=== PATIENT | female | born 1990 | race Caucasian/White ===

== ENCOUNTER → 2018-02-04 | Day surgery (SDC) | payer OTHER ==
[~2018-02-04] VITALS: Ht 157.5 cm; Wt 51.8 kg
[~2018-02-04] MED LIST: BIOT10TA PO; CHLORHEXIDINE GLUCONATE 2 % 1 PACK (2 CLOTHS) TOPICAL PRN; DEXAMETHASONE SOD PHOS 4 MG/ML VIAL IV ONE; ESMOLOL HCL 100 MG/10 ML VIAL IV ONE; GLYCOPYRROLATE 1 MG/5 ML SYRINGE IV PUSH ONE; LACTATED RINGER'S 1000 ML IV PRN; LIDOCAINE HCL 1% PF 10 ML VIAL ONE; LIDOCAINE HCL 1% PF 5 ML SYRINGE OTHER ONE; METOPROLOL TARTRATE 25 MG TAB PO PRN; MIDAZOLAM HCL 2 MG/2 ML VIAL ONE; ONDANSETRON HCL 4 MG/2 ML VIAL IV PUSH ONE; PHENYLEPH/NS 1000 MCG/10 ML SYR IV ONE; POVIDONE IODINE 5% (ANTISEPSIS KIT) 4 APPLICATIONS EACH NARE PRN; PROPOFOL 200 MG/20 ML AMP IV ONE; ROCURONIUM INJ 50 MG/5 ML SYRINGE IV PUSH ONE; SODIUM CHLORID 0.9% 500 ML IV PRN; ceFAZolin INJ 1,000 MG VIAL ONE; ePHEDrine/NS 25 MG/5 ML SYRINGE IV ONE
[2018-02-04 09:10] LABS: AUTOMATED NEUTROPHIL # 4.1 TH/MM3 (1.8-7.7); BASOPHIL % 0.4 % (0.0-2.0); EOSINOPHIL # 0.3 TH/MM3 (0-0.4); EOSINOPHIL % 3.8 % (0.0-4.0); HEMATOCRIT 41.1 % (35.0-46.0); HEMOGLOBIN 14.4 GM/DL (11.6-15.3); LYMPH % 28.3 % (9.0-44.0); LYMPHOCYTE # 1.9 TH/MM3 (1.0-4.8); MEAN CELL VOLUME 88.3 FL (80.0-100.0); MEAN CORPUSCULAR HEMOGLOBIN 30.8 PG (27.0-34.0); MEAN CORPUSCULAR HGB CONC 34.9 % (32.0-36.0); MEAN PLATELET VOLUME 9.5 FL (7.0-11.0); MONO % 6.7 % (0.0-8.0); MONOCYTE # 0.5 TH/MM3 (0-0.9); NEUT % 60.8 % (16.0-70.0); PLATELET COUNT 255 TH/MM3 (150-450); RED BLOOD COUNT 4.66 MIL/MM3 (4.00-5.30); RED CELL DISTRIBUTION WIDTH 13.9 % (11.6-17.2); WHITE BLOOD COUNT 6.7 TH/MM3 (4.0-11.0)
[2018-02-04 09:31] LABS: BICARBONATE 24.8 MEQ/L (21.0-32.0); CREATININE 0.98 MG/DL (0.50-1.00)
[2018-02-04 12:40] VITALS: BP 93/59; PULSE 75; RESP 16; TEMP 98.2; O2SAT 100
--- NOTE | 2018-02-04 13:36 | MP ---
cc: Benny Nieto MD DATE OF OPERATION: 02/04/2018 PREOPERATIVE DIAGNOSIS: Lipoma left upper thigh. POSTOPERATIVE DIAGNOSIS: Lipoma left upper thigh. OPERATIVE PROCEDURE: Excision of a 2 cm lipoma of the left thigh. SURGEON: Benny Nieto MD ANESTHESIA: 1% Xylocaine and MAC. ESTIMATED BLOOD LOSS: 2 mL PROCEDURE: The patient prepped and draped in the usual fashion. The area infiltrated with 1% Xylocaine and then a vertical incision made over the small lipoma which was then excised and removed. Some area of the lipoma appear to be perhaps actually lymphatic tissue rather than lipoma, but everything is submitted to pathology. The area irrigated with saline and the incision closed with 4-0 Monocryl and Dermabond was applied. The patient tolerated the procedure well. Benny Nieto MD SJ/DL/ , 12:11 PM , 01:11 PM
== END | disposition home or self-care (01) ==
LOC: HSDC 08:06
PROVIDERS: ATTEND Surgery
DX: D17.24 Benign lipomatous neoplasm of skin and subcutaneous tissue of left leg (principal)
CPT/HCPCS: 00400; 27327; 80048; 84703; 85025; 88305; J0690; J1100; J2250; J2370; J2405; J3010; J7120; 88304